=== PATIENT | male | born 1995 | race Caucasian/White ===

== ENCOUNTER 2020-01-10 14:38 | Observation (INO) | payer BC, OTHER, SELFPAY ==
--- NOTE | ~2020-01-10 | XR_ITS ---
EXAMINATION: XR retrograde pyelogram RT DATE: 01/11/2020 12:35 INDICATION: Right stone extraction with stent placement TECHNIQUE: 44 fluoroscopic images of the abdomen and pelvis were obtained during procedure performed by Dr. Day. Radiologist was not present for the imaging or procedure. The amount of fluoroscopy ti me used during this procedure was 1.4 minutes. COMPARISON: KUB dated 01/11/2020 FINDINGS: No urolithiasis evident on the admin secretary fluoroscopic images. Subsequent images demonstrate a catheter ad vanced throughout the right ureter to the right renal pelvis with retrograde opacification of the rig ht renal collecting system which demonstrates mild hydronephrosis. IMPRESSION: 1. Mild right hydronephrosis likely related to reported stone in the mid right ureter which is unable to be visualized on the admin secretary images. See procedure note for further detail. Reviewed, dictated and finalized at location A.
--- NOTE | ~2020-01-10 | CT_ITS ---
EXAMINATION: CT abdomen pelvis wo con DATE: 01/10/2020 15:26 INDICATION: Right-sided abdominal pain TECHNIQUE: Computed tomography (CT) of the abdomen and pelvis was performed without intravenous contr ast. The dose-length product (DLP) was 540.99 mGy-cm. Automated exposure control and iterative recons truction technique were employed. COMPARISON: None FINDINGS: The lung bases are clear. The heart size is normal. The liver, spleen, pancreas, gallbladde r, and adrenal glands are normal. The left kidney is unremarkable. There is a 5 mm stone in the right mid ureter which causes mild right hydroureteronephrosis. No pathologically enlarged abdominal or pe lvic lymph nodes are identified. There is no free intraperitoneal gas or evidence of bowel obstructio n. The appendix is normal. IMPRESSION: 1. 5 mm stone in the right mid ureter which causes mild right hydroureteronephrosis. Reviewed, dictated and finalized at location A. IMPRESSION: 1. 5 mm stone in the right mid ureter which causes mild right hydroureteronephr osis.
--- NOTE | ~2020-01-10 | XR_ITS ---
EXAMINATION: XR abdomen/kub 1V DATE: 01/11/2020 08:08 INDICATION: Right ureteral stone. TECHNIQUE: A supine view of the abdomen on 2 radiographs was obtained. COMPARISON: CT abdomen and pelvis 01/10/2020 FINDINGS: There are no dilated loops of bowel. There is no visible urolithiasis. IMPRESSION: 1. No visible urolithiasis. Reviewed, dictated and finalized at location A. IMPRESSION: 1. No visible urolithiasis.
--- NOTE | ~2020-01-10 | XR_ITS ---
EXAMINATION: XR abdomen/kub 1V INDICATION: Right ureteral stone TECHNIQUE: Supine views of the abdomen were obtained on 2 radiographs. COMPARISON: CT from today FINDINGS: The right mid ureteral stone described on CT from today is not definitely identified. The b owel gas pattern is normal. The visualized osseous structures are unremarkable. IMPRESSION: 1. Known right mid ureteral stone not definitely identified. Reviewed, dictated and finalized at location A.
[2020-01-10 14:43] VITALS: BP 136/84; PULSE 61; RESP 20; TEMP 37.1; O2SAT 100
--- NOTE | 2020-01-10 14:48 | ED.ABDPAIN ---
HPI - Abdominal Pain General Chief Complaint: Abdominal Pain Stated Complaint: left flank pain Time Seen by Provider: 01/10/20 14:40 Source: RN notes reviewed History of Present Illness HPI narrative: Patient presents emergency department from home for abdominal pain. Patient states symptoms began last night at 10 PM. The pain is located in the right side of the abdomen did not radiate. Patient states pain progressively worsened when he went to sleep he awoke with no pain and pain began again at work this a.m. Pain is associated with nausea vomiting. Denies any fevers or chills diarrhea or any other symptoms took ibuprofen last night but no medication for pain today Related Data Home Medications Medication Instructions Recorded Confirmed omeprazole 20 mg PO DAILY 01/10/20 Allergies Allergy/AdvReac Type Severity Reaction Status Date / Time No Known Allergies Allergy Unverified 01/10/20 14:48 Review of Systems Review of Systems: Narrative: Gen.: Denies fevers or chills ENT: Denies congestion Respiratory: Denies shortness of breath or cough CV: Denies chest pain or palpitations GI: See HPI denies burning, urgency, frequency or hematuria Musculoskeletal: Denies back pain or muscle pain Neuro: Denies numbness, tingling, weakness or focal weakness Skin: Denies rash Except as documented, all other systems reviewed and negative [facility] Past Medical History Medical History (Updated 01/10/20 @ 16:20 by Jhon Dominguez DO) GERD (gastroesophageal reflux disease) Social History Social History (Updated 01/10/20 @ 14:49 by Jhon Dominguez DO) Smoking status: Never smoker Gender identity (if verbalized by the patient): Male Exam Narrative: Exam Narrative: APPEARANCE: No acute distress, nontoxic, resting in bed HEENT: Normocephalic, atraumatic, OMM RESPIRATORY: No respiratory distress, clear to auscultation bilaterally with no rhonchi wheezing or rales CARDIOVASCULAR: RRR s murmur ABDOMINAL: Soft, nondistended, tender palpation right upper quadrant and right lower quadrant, no tenderness left upper quadrant left lower quadrant, no rebound or guarding MUSCULOSKELETAl: Moves all extremities. No clubbing, cyanosis or edema. NEURO: Awake and alert. Following commands, speech normal, no focal deficits SKIN:: Warm, dry. Normal Color PSYCHIATRIC: Normal affect/mood Course Course Emergency Course: : Discussed with Dr. Day presentation work-up. Agrees with admission to his service at this time patient to be n.p.o. after midnight for possible lithotripsy tomorrow Discussed with patient and family results of workup and diagnosis. Discussed need for admission. Patient and family understand and agree to current treatment plan Vital Signs Vital signs: Vital Signs Temperature 98.7 F 01/10/20 14:43 Pulse Rate 61 01/10/20 14:43 Respiratory Rate 20 01/10/20 14:43 Blood Pressure 136/84 01/10/20 14:43 Pulse Oximetry 100 01/10/20 14:43 Temperature 98.7 F 01/10/20 14:43 Pulse Rate 92 01/10/20 15:52 Respiratory Rate 16 01/10/20 15:52 Blood Pressure 130/95 H 01/10/20 15:52 Pulse Oximetry 98 01/10/20 15:52 MDM - Abdominal Pain Lab Data Result diagrams: 01/10/20 14:52 01/10/20 14:52 Labs: Lab Results 01/10/20 01/10/20 01/10/20 Range/Units 14:52 14:52 15:38 WBC 13.1 H (4.5-10.0) K/mm3 RBC 4.87 (4.6-6.20) M/mm3 Hgb 14.7 (14.0-18.0) g/dL Hct 42.5 (42.0-52.0) % MCV 87.3 (80-100) fl MCH 30.2 (26-34) pg MCHC 34.6 (32-36) g/dl RDW 11.6 (11.5-14.5) % Plt Count 245 (150-375) k/mm3 MPV 9.8 (7.4-10.4) fl Immature Gran % (Auto) 0.4 (0-0.5) % Neut % (Auto) 76.7 H (45.5-73.1) % Lymph % (Auto) 17.3 L (18.3-44.2) % [place] % (Auto) 5.0 (2.6-8.5) % Eos % (Auto) 0.4 (0-4.4) % Baso % (Auto) 0.2 (0.2-1.2) % Lymph # (Auto) 2.26 (0.9-3.2) K/mm3 [place] # (Auto) 0.7 H (0.1-0.6)
[2020-01-10 15:00] LABS: Basophils Percent Auto 0.2 % (0.2-1.2); Eosinophils Absolute Auto 0.1 K/mm3 (0-0.3); Eosinophils Percent Auto 0.4 % (0-4.4); Hematocrit 42.5 % (42.0-52.0); Hemoglobin 14.7 g/dL (14.0-18.0); Immature Granulocyte Absolute 0.05 K/mm3 (0.00-0.031); Immature Granulocyte Percent A 0.4 % (0-0.5); Lymphocytes Absolute Auto 2.26 K/mm3 (0.9-3.2); Lymphocytes Percent Auto 17.3 % (18.3-44.2); Mean Corpuscular HGB Conc 34.6 g/dl (32-36); Mean Corpuscular Hemoglobin 30.2 pg (26-34); Mean Corpuscular Volume 87.3 fl (80-100); Mean Platelet Volume 9.8 fl (7.4-10.4); Monocytes Absolute Auto 0.7 K/mm3 (0.1-0.6); Neutrophils Percent Auto 76.7 % (45.5-73.1); Platelet Count Result 245 k/mm3 (150-375); Red Blood Count 4.87 M/mm3 (4.6-6.20); Red Cell Distribution Width 11.6 % (11.5-14.5); White Blood Count 13.1 K/mm3 (4.5-10.0)
[2020-01-10] MEDS: KETOROLAC 30 MG/ML VIAL (*BKC) IV PUSH (15:08)
[2020-01-10] MEDS: ONDANSETRON INJ 4 MG/2 ML VIAL IV PUSH (15:09)
[2020-01-10] MEDS: SODIUM CHLORIDE 0.9% IV 1,000 ML 999 ML IV CONT (15:09)
[2020-01-10 15:12] LABS: Alanine Aminotransferase 44 U/L (4-50); Alkaline Phosphatase 97 U/L (38-126); Aspartate Amino Transferase 40 U/L (17-59); Bilirubin,Total 0.6 mg/dL (0.2-1.3); Blood Urea Nitrogen 16 mg/dL (9-20); Calcium 9.8 mg/dL (8.4-10.2); Carbon Dioxide 32 mmol/L (22-30); Chloride 102 mmol/L (98-107); Estimated CRCL calculation 105 ml/min; Estimated Glomerular Filt Rate > 60; Glucose 133 mg/dL (75-110); Lipase 35 U/L (23-300); Potassium 4.2 mmol/L (3.4-5.0); Sodium 139 mmol/L (137-145)
[2020-01-10] MEDS: MORPHINE SULFATE 4 MG/ML INJ IV PUSH (15:48)
[2020-01-10 15:50] LABS: Add Urine Microscopic? YES; Appearance Urine Clear (Clear); Bilirubin Urine Negative (Negative); Blood Urine 3+ (Negative); Calcium Oxalate Crystals Urine Present /hpf; Color Urine Yellow (Yellow); Glucose Urine UA Negative (Negative); Ketones Urine Negative (Negative); Leukocyte Esterase Ur Trace LEU/UL (Negative); Mucus Urine Heavy /lpf; Nitrate Urine Negative (Negative); Protein Urine 2+ mg/dL (Negative); RBC Urine >75 /hpf (0-2); Specific Grav Ur 1.029 (1.001-1.035); Urobilinogen Urine Negative mg/dL (<2.0)
[2020-01-10 15:52] VITALS: BP 130/95; PULSE 92; RESP 16; O2SAT 98
[2020-01-10] MEDS: TAMSULOSIN HCL 0.4 MG CAPSULE PO (16:12)
--- NOTE | 2020-01-10 17:18 | ADMGEN ---
This patient, Tony Galvez, was admitted to Medical Room 348-. Patient/family oriented to hospital policies and general routines including ID bracelet, bed and alarms, visiting hours, pain management, procedures, bathroom and other care routines, personal items, smoking policy, room service/diet, and visiting hours. Valuables list has been completed. Information on how to activate the Rapid Response Team has been discussed. Patient/Family are encouraged to report perceived risks to care and to ask questions if they do not understand what they are told or what they should do.
[2020-01-10 17:21] VITALS: BP 133/60; PULSE 91; RESP 14; TEMP 36.3; O2SAT 100
[2020-01-10] MEDS: SODIUM CHLORIDE 0.9% IV 1,000 ML 125 ML IV CONT (17:24)
[2020-01-10 17:32] VITALS: BMI 30.4
[2020-01-10 20:20] VITALS: BP 143/77; PULSE 92; RESP 14; TEMP 37; O2SAT 100
[2020-01-10 21:00] VITALS: PULSE 92; RESP 14; O2SAT 100
[2020-01-11] VITALS (13 sets, daily range): BP systolic 115–153; BP diastolic 59–95; PULSE 57–88; RESP 10–18; TEMP 36.1–36.9; O2SAT 94–100
[2020-01-11] MEDS: SODIUM CHLORIDE 0.9% IV 1,000 ML 125 ML IV CONT ×2 (01:30→09:40)
[2020-01-11 06:19] LABS: Basophils Percent Auto 0.1 % (0.2-1.2); Eosinophils Percent Auto 0.4 % (0-4.4); Hemoglobin 12.7 g/dL (14.0-18.0); Immature Granulocyte Absolute 0.02 K/mm3 (0.00-0.031); Immature Granulocyte Percent A 0.3 % (0-0.5); Lymphocytes Percent Auto 33.7 % (18.3-44.2); Mean Corpuscular HGB Conc 34.3 g/dl (32-36); Mean Corpuscular Hemoglobin 30.6 pg (26-34); Mean Corpuscular Volume 89.2 fl (80-100); Mean Platelet Volume 10.2 fl (7.4-10.4); Monocytes Absolute Auto 0.5 K/mm3 (0.1-0.6); Monocytes Percent Auto 7.6 % (2.6-8.5); Neutrophils Absolute Auto 4.1 K/mm3 (1.3-6.7); Neutrophils Percent Auto 57.9 % (45.5-73.1); Platelet Count Result 183 k/mm3 (150-375); Red Blood Count 4.15 M/mm3 (4.6-6.20); White Blood Count 7.1 K/mm3 (4.5-10.0)
[2020-01-11 06:31] LABS: Blood Urea Nitrogen 15 mg/dL (9-20); Calcium 8.8 mg/dL (8.4-10.2); Carbon Dioxide 28 mmol/L (22-30); Chloride 108 mmol/L (98-107); Estimated CRCL calculation 132 ml/min; Estimated Glomerular Filt Rate > 60; Glucose 104 mg/dL (75-110); Potassium 4.2 mmol/L (3.4-5.0); Sodium 139 mmol/L (137-145)
--- NOTE | 2020-01-11 08:20 | PM.IMHP ---
H&P: HPI History of Present Illness Chief complaint: Right side kidney stone/UTI Narrative: Tony Galvez is a 24 year old male without prior significant urological history or history of urolithiasis presented to the ER last night with acute right renal colic and intractable nausea vomiting. Imaging revealed an obstructing 5 mm right mid ureteral stone was somewhat difficult to see on KUB. He was admitted for pain control, hydration he definitive intervention for his right mid ureteral stone (either via ESWL or endoscopic extraction). Review of Systems Constitutional: Constitutional: Denies chills, Denies fatigue, Denies fever(s) and Denies headache(s) Eyes: Eyes: Denies blurry vision ENT: Denies vertigo, Denies dizziness, Denies headache(s) and Denies sore throat Cardiovascular: Cardiovascular: Denies chest pain, Denies syncope, Denies lightheadedness, Denies palpitations, Denies dyspnea and Denies dyspnea on exertion Respiratory: Respiratory: Denies hemoptysis, Denies dyspnea and Denies dyspnea on exertion Gastrointestinal: Gastrointestinal: Denies melena, Denies bloating, Denies hematochezia, Denies change in bowel habits, Denies change in stool character, Denies constipation, Denies diarrhea and Denies vomiting Genitourinary: Genitourinary: Denies hematuria, Denies dysuria, Denies testicular pain, Denies urinary frequency, Denies urinary hesitancy and Denies urinary urgency Integumentary/Breasts: Skin/Breast: Denies pruritus, Denies lesions and Denies rash Neurologic: Denies confusion, Denies vertigo, Denies dizziness, Denies syncope and Denies headache(s) Psychiatric: Psychiatric: Denies anxiety, Denies change in appetite and Denies confusion Endocrine: Endocrine: Denies fatigue and Denies palpitations PMF Past Medical History Medical History GERD (gastroesophageal reflux disease) Family History Family History Grandparent Malignant neoplasm of prostate Grandparent Cancer Diabetes mellitus Father Diverticulitis Social History Social History Smoking status: Never smoker Second hand tobacco smoke exposure: Yes Alcohol intake: never Substance use: never Substance use type: does not use Gender identity (if verbalized by the patient): Male Spiritual care concerns: No Meds Home Medications and Allergies Home Medications Medication Instructions Recorded Confirmed Type omeprazole 20 mg PO DAILY 01/10/20 01/10/20 History Allergies Allergy/AdvReac Type Severity Reaction Status Date / Time venom-wasp Allergy Swelling Verified 01/10/20 18:25 Vital Signs Vital Signs - 24 hr 01/10/20 14:43 01/10/20 15:52 01/10/20 17:21 Temperature 98.7 F 97.4 F L Pulse Rate 61 92 91 Respiratory Rate 20 16 14 Blood Pressure 136/84 130/95 H 133/60 Pulse Oximetry 100 98 100 01/10/20 20:20 01/10/20 21:00 01/11/20 05:16 Temperature 98.6 F 97.3 F L Pulse Rate 92 92 88 Respiratory Rate 14 14 16 Blood Pressure 143/77 H 115/59 L Pulse Oximetry 100 100 100 H&P: Results Labs Labs: Short CBC 01/10/20 01/11/20 Range/Units 14:52 05:50 WBC 13.1 H 7.1 (4.5-10.0) K/mm3 Hgb 14.7 12.7 L (14.0-18.0) g/dL Hct 42.5 37.0 L (42.0-52.0) % Plt Count 245 183 (150-375) k/mm3 [facility] 01/10/20 01/11/20 14:52 05:50 Sodium 139 139 Potassium 4.2 4.2 Chloride 102 108 H Carbon Dioxide 32 H 28 BUN 16 15 Creatinine 0.90 0.80 Glucose 133 H 104 Calcium 9.8 8.8 Liver Function 01/10/20 Range/Units 14:52 Total Bilirubin 0.6 (0.2-1.3) mg/dL AST 40 (17-59) U/L ALT 44 (4-50) U/L Alkaline Phosphatase 97 (38-126) U/L Albumin 5.0 (3.5-5.1) g/dL Urine 01/10/20 Range/Units 15:38 Urine Color Yellow (Yellow) Urine Appearance Clear (Clear) Urine pH 6.0 (5.0-9.0)
--- NOTE | 2020-01-11 11:17 | PC.NURSE ---
To OR via wheelchair with OR staff. SBAR handed to preop nurse Evan Cooper RN. Preop staff to obtain consent.
--- NOTE | 2020-01-11 11:28 | WPDANESEPPF ---
Anes - Initial Pre Proc Eval Procedure: Operation Date: 01/11/20 13:30 Proposed Procedures p Cystoscopy,Right Ureteroscopy,Stone Extraction - Daniel Day MD Date/Time: 01/11/20 11:28 Surgeon: Daniel Day MD Pre Op Diagnosis: Right side kidney stone/UTI Patient Data Age: 24 Gender: M Height: 5 ft 7 in Weight: 88.1 kg Last Vital Signs Temp 36.3 C L 01/11/20 05:16 Pulse 88 01/11/20 05:16 Resp 16 01/11/20 05:16 BP 115/59 L 01/11/20 05:16 Pulse Ox 100 01/11/20 05:16 Allergies Allergy/AdvReac Type Severity Reaction Status Date / Time venom-wasp Allergy Swelling Verified 01/10/20 18:25 Home Medications Medication Instructions Recorded Confirmed Type omeprazole 20 mg PO DAILY 01/10/20 01/10/20 History Laboratory Tests 01/10/20 01/10/20 01/10/20 14:52 14:52 15:38 WBC 13.1 K/mm3 H K/mm3 (4.5-10.0) RBC 4.87 M/mm3 M/mm3 (4.6-6.20) Hgb 14.7 g/dL g/dL (14.0-18.0) Hct 42.5 % % (42.0-52.0) MCV 87.3 fl fl (80-100) MCH 30.2 pg pg (26-34) MCHC 34.6 g/dl g/dl (32-36) RDW 11.6 % % (11.5-14.5) Plt Count 245 k/mm3 k/mm3 (150-375) MPV 9.8 fl fl (7.4-10.4) Immature Gran % (Auto) 0.4 % % (0-0.5) Neut % (Auto) 76.7 % H % (45.5-73.1) Lymph % (Auto) 17.3 % L % (18.3-44.2) [place] % (Auto) 5.0 % % (2.6-8.5) Eos % (Auto) 0.4 % % (0-4.4) Baso % (Auto) 0.2 % % (0.2-1.2) Lymph # (Auto) 2.26 K/mm3 K/mm3 (0.9-3.2) [place] # (Auto) 0.7 K/mm3 H K/mm3 (0.1-0.6) Eos # (Auto) 0.1 K/mm3 K/mm3 (0-0.3) Baso # (Auto) 0.0 K/mm3 K/mm3 (0.0-0.1) Abs Immat Gran (auto) 0.05 K/mm3 H K/mm3 (0.00-0.031) Absolute Neuts (auto) 10.0 K/mm3 H K/mm3 (1.3-6.7) Absolute Nucleated RBC 0.0 K/mm3 K/mm3 (0.0-0.012) Nucleated RBC % 0.0 % % (0.0-0.2) Sodium 139 mmol/L mmol/L (137-145) Potassium 4.2 mmol/L mmol/L (3.4-5.0) Chloride 102 mmol/L mmol/L (98-107) Carbon Dioxide 32 mmol/L H mmol/L (22-30) BUN 16 mg/dL mg/dL (9-20) Creatinine 0.90 mg/dL mg/dL (0.7-1.3) Estim Creat Clear Calc 105 ml/min ml/min Estimated GFR > 60 (59 - ) Glucose 133 mg/dL H mg/dL (75-110) Calcium 9.8 mg/dL mg/dL (8.4-10.2) Total Bilirubin 0.6 mg/dL mg/dL (0.2-1.3) AST 40 U/L U/L (17-59) ALT 44 U/L U/L (4-50) Alkaline Phosphatase 97 U/L U/L (38-126) Total Protein 8.0 g/dL g/dL (6.3-8.2) Albumin 5.0 g/dL g/dL (3.5-5.1) Lipase 35 U/L U/L (23-300) Urine Color Yellow (Yellow) Urine Appearance Clear (Clear) Urine pH 6.0 (5.0-9.0) Ur Specific [place] 1.029 (1.001-1.035) Urine Protein 2+ mg/dL H mg/dL (Negative) Urine Glucose (UA) Negative mg/dL mg/dL (Negative) Urine Ketones Negative mg/dL mg/dL (Negative) Ur Blood (Man) 3+ H (Negative) Urine Nitrate Negative (Negative) Urine Bilirubin Negative (Negative) Urine Urobilinogen Negative mg/dL mg/dL (<2.0) Leukocyte Esterase Rfl Trace [place]/UL H [place]/UL (Negative) Urine RBC >75 /hpf H /hpf (0-2) Urine WBC 4-6 /hpf H /hpf Calcium Oxalate Crystal Present /hpf /hpf (None) Hyaline Casts 1-2 /lpf /lpf (None) Urine Mucus Heavy /lpf H /lpf 01/11/20 01/11/20 05:50 05:50 WBC 7.1 K/mm3 K/mm3 (4.5-10.0) RBC 4.15 M/mm3 L M/mm3 (4.6-6.20) Hgb 12.7 g/dL L g/dL (14.0-18.0) Hct 37.0 % L % (42.0-52.0) MCV 89.2 fl fl (80-100) MCH 30.6 pg pg (26-34) MCHC 34.3 g/dl g/dl (32-36) RDW 12.0 % %
[2020-01-11] MEDS: LACTATED RINGERS 1,000 ML 30 ML IV CONT ×2 (11:30→13:36)
[2020-01-11] MEDS: LIDOCAINE HCL 2% GEL UROJET 10 ML PKG MUCOUS MEM (12:03)
[2020-01-11] MEDS: KETOROLAC 30 MG/ML VIAL (*BKC) IV PUSH (12:31)
--- NOTE | 2020-01-11 13:01 | P.OP_ITS ---
Procedure Note - Detailed Date of procedure: 01/11/20 Pre-op diagnosis: Right side kidney stone/UTI Post-op diagnosis: same Procedure performed: 1. Cystoscopy, right RPG 2. Right ureteroscopy with stone extraction. Description of procedure: The patient was brought to the operative suite where he is prepped and draped in a routine sterile fashion while in the dorsal lithotomy position after the uneventful induction of a general LMA anesthetic. A 19F rigid cystoscope was placed in the bladder. There are no urethral strictures. His prostatic urethra measures, approximately, 1.0cm with no median lobe enlargement. The bladder mucosa was endoscopically normal without hyperemia or neoplasm. There was a single, orthotopic ureteral orifice bilaterally. A 0.035 glidewire was advanced into the right renal pelvis under fluoroscopy. T he distal ureter was dilated with an 8F/10F ureteral dilator. Ureteroscopy was undertaken with a short, tapered, semi-rigid ureteroscope and then a 7.5F flexible scope. The small stone persisted in the right mid-ureter was extracted with ease using a disposable 1.9F stone basket. Due to the ease of this manipulation I opted not to place a ureteral stent. The patient's bladder was emptied and was taken to the recovery room having tolerated this procedure well. Anesthesia: GLMA Surgeon: Daniel Day MD Estimated blood loss (mL): 0 Drains: No Packing: No Pathology: yes (right ureteral stone) Complications: No immediate complications Condition: stable Disposition: PACU
--- NOTE | 2020-01-11 13:19 | PM.DS ---
DS: Admitting Diagnosis Admitting Diagnosis Admitting Diagnosis: Calculus of ureter DS: Discharge Diagnosis Discharge Diagnosis (1) Right ureteral stone: Code(s): N20.1 - Calculus of ureter Status: Acute DS: Summary Time Spent with Patient Time attestation: Total time spent providing and/or coordinating discharge services: 15 min patient presented to the emergency room with right renal colic and imaging demonstrated a 5 mm right mid-ureteral calculus, his 1st known urological stone. He was admitted overnight for hydration and analgesics. On 2 subsequent occasions the stone failed to visualize on a KUB. The morning following admission he underwent an uneventful endoscopic stone extraction without stent placement. Thereafter he was comfortable. He was discharged on the 5th day following admission. Exam Const: General: no acute distress Resp: Effort & Inspection: normal respiratory effort GI: Inspection: non-distended GI Palp: No abdominal tenderness and No Guarding due to palpation present (GI) Auscultation: normal bowel sounds DS: Data Data Completed and Pending Pending studies at discharge: Pending at discharge 01/11/20 12:31 Surgical [PTH] Routine Labs on day of discharge: Labs from last 24 hours 01/11/20 01/11/20 01/10/20 05:50 05:50 15:38 WBC 7.1 RBC 4.15 L Hgb 12.7 L Hct 37.0 L MCV 89.2 MCH 30.6 MCHC 34.3 RDW 12.0 Plt Count 183 MPV 10.2 Immature Gran % (Auto) 0.3 Neut % (Auto) 57.9 Lymph % (Auto) 33.7 [place] % (Auto) 7.6 Eos % (Auto) 0.4 Baso % (Auto) 0.1 L Lymph # (Auto) 2.40 [place] # (Auto) 0.5 Eos # (Auto) 0.0 Baso # (Auto) 0.0 Abs Immat Gran (auto) 0.02 Absolute Neuts (auto) 4.1 Absolute Nucleated RBC 0.0 Nucleated RBC % 0.0 Sodium 139 Potassium 4.2 Chloride 108 H Carbon Dioxide 28 BUN 15 Creatinine 0.80 Estim Creat Clear Calc 132 Estimated GFR > 60 Glucose 104 Calcium 8.8 Total Bilirubin AST ALT Alkaline Phosphatase Total Protein Albumin Lipase Urine Color Yellow Urine Appearance Clear Urine pH 6.0 Ur Specific [place] 1.029 Urine Protein 2+ H Urine Glucose (UA) Negative Urine Ketones Negative Ur Blood (Man) 3+ H Urine Nitrate Negative Urine Bilirubin Negative Urine Urobilinogen Negative Leukocyte Esterase Rfl Trace H Urine RBC >75 H Urine WBC 4-6 H Calcium Oxalate Crystal Present Hyaline Casts 1-2 Urine Mucus Heavy H 01/10/20 01/10/20 14:52 14:52 WBC 13.1 H RBC 4.87 Hgb 14.7 Hct 42.5 MCV 87.3 MCH 30.2 MCHC 34.6 RDW 11.6 Plt Count 245 MPV 9.8 Immature Gran % (Auto) 0.4 Neut % (Auto) 76.7 H Lymph % (Auto) 17.3 L [place] % (Auto) 5.0 Eos % (Auto) 0.4 Baso % (Auto) 0.2 Lymph # (Auto) 2.26 [place] # (Auto) 0.7 H Eos # (Auto) 0.1 Baso # (Auto) 0.0 Abs Immat Gran (auto) 0.05 H Absolute Neuts (auto) 10.0 H Absolute Nucleated RBC 0.0 Nucleated RBC % 0.0 Sodium 139 Potassium 4.2 Chloride 102 Carbon Dioxide 32 H BUN 16 Creatinine 0.90 Estim Creat Clear Calc 105 Estimated GFR > 60 Glucose 133 H Calcium 9.8 Total Bilirubin 0.6 AST 40 ALT 44 Alkaline Phosphatase 97 Total Protein 8.0 Albumin 5.0 Lipase 35 Urine Color Urine Appearance Urine pH Ur Specific [place] Urine Protein Urine Glucose (UA) Urine Ketones Ur Blood (Man) Urine Nitrate Urine Bilirubin Urine Urobilinogen Leukocyte Esterase Rfl Urine RBC Urine WBC Calcium Oxalate Crystal Hyaline Casts Urine Mucus Discharge Plan Discharge Attending physician on discharge: Daniel Day Consulting providers: Veronika Kaur Discharging Clinician: Daniel Day Patient Disposition: Home, Self-Care Activity: other - see discharge instructions Diet: regular Discha
--- NOTE | 2020-01-11 14:23 | PC.NURSE ---
Received patient from OR via stretcher with OR staff. Settled into room. No distress noted. Patient c/o right middle quadrant pain - 01/31.
[2020-01-11] MEDS: MORPHINE SULFATE 4 MG/ML INJ IV PUSH (14:26)
--- NOTE | 2020-01-11 15:15 | PC.NURSE ---
Patient c/o pain to right mid abdomen - now rating it 8/10 1 hour after receiving IV Morphine. Called Dr. Day and notified him of same. Orders received for IV Tylenol x 1.
== END 2020-01-11 17:20 | disposition home or self-care (01) ==
LOC: ANHED 16:20 → ANH3MED 17:08
PROVIDERS: Admitting Provider Urology; Emergency Provider Emergency Medicine; Visit Provider Urology
PROC: (CPT 52352; principal; 2020-01-11 13:30)
DX: N13.30 Unspecified hydronephrosis (principal); N20.1 Calculus of ureter; N39.0 Urinary tract infection, site not specified; K21.9 Gastro-esophageal reflux disease without esophagitis
CPT/HCPCS: 52352; 36415; 74018; 74176; 74420; 80048; 80053; 81001; 82365; 83690; 85025; 88300; 96361; 96374; 96375; 99285; A9270; C1758; C1769; G0378; J0131; J0696; J1100; J1885; J2250; J2270; J2405; J2704; J3010; J7030; J7120